=== PATIENT | male | born 1940 | race Caucasian/White ===

== ENCOUNTER 2017-08-15 08:42 | Day surgery (SDC) | payer MEDICARE, BC ==
--- NOTE | 2017-08-15 08:03 | HP ---
DATE OF SURGERY: 08/15/2017 HISTORY OF PRESENT ILLNESS: The patient is a 77 year-old last colonoscopy four years ago and three polyps. No bloody stools. Family history mother with colon cancer. She is in need of follow up colonoscopy. PAST MEDICAL HISTORY: Diabetes. PAST SURGICAL HISTORY: Colonoscopy three years or so ago. Inguinal hernia in the past. Upper endoscopy in the past. MEDICATIONS: Metformin, aspirin. ALLERGIES: NKDA. FAMILY HISTORY: Noncontributory. SOCIAL HISTORY: No alcohol abuse. REVIEW OF SYSTEMS: Twelve systems reviewed. He has got some degenerative disc disease. He denies any chronic problems. No chest pain or palpitations other systems negative or noncontributory as above and per preadmission questionnaire. PHYSICAL EXAMINATION: GENERAL: No acute distress. HEENT: Sclerae nonicteric. NECK: No JVD. CHEST: Equal excursion, nonlabored breathing. CVS: Regular rate and rhythm. ABDOMEN: Soft. No peritoneal signs. EXTREMITIES: No significant edema. NEURO: Alert, oriented, moving extremities symmetrically. No gross motor deficits noted. IMPRESSION: History of polyps in need of follow up endoscopy. He was shown the risk sheet and explained the procedure in detail but not limited to bleeding or infection, small risk of bowel injury or perforation possibly requiring open procedure, small risk of missed or nondiagnosis or incomplete exam possibly requiring barium enema, other studies or procedures, general risk of anesthesia or sedation. He understands and agrees to the planned procedure and will proceed with outpatient follow up colonoscopy.
[~2017-08-15 08:42] MED LIST: Lactated Ringers 1,000 ML IV ONE; Lactated Ringers 1,000 ML IV SCH
[2017-08-15] MEDS ORDERED: DIPRIVAN 200 MG/20 ML IV ONE (08:43)
[2017-08-15] MEDS ORDERED: Ketamine HCl 50 MG/ML IV ONE (08:43)
[2017-08-15] MEDS ORDERED: Lactated Ringers 1,000 ML IV ONE (10:51)
[2017-08-15 11:30] VITALS: O2SAT 95
[2017-08-15 12:03] VITALS: BP 152/90; PULSE 94
--- NOTE | 2017-08-15 14:39 | OP ---
SURGERY DATE/TIME: 08/15/2017 1030 PREOPERATIVE DIAGNOSES: 1) Polyps. 2) History of colon cancer status post resection. POSTOPERATIVE DIAGNOSES: 1) Somewhat poor prep limiting the exam. 2) Diverticulosis. 3) Small internal and external hemorrhoids. 4) Small raised lesion versus hyperplastic lesion versus early polyp cecum and transverse colon as well as raised area at anastomotic site versus inflammation. PROCEDURES: 1) Colonoscopy to cecum with hot biopsy of cecal small raised lesion versus early polyps or hyperplastic lesion. 2) Hot biopsy transverse colon small raised lesion versus hyperplastic lesion. 3) Hot biopsy small raised lesion anastomotic site in rectosigmoid area question of inflammation. SURGEON: Dr. Salvador Cheng. ANESTHESIA: MAC. ESTIMATED BLOOD LOSS: Minimal. INDICATIONS: As noted above. Risks and benefits explained in detail but not limited to and consent obtained. DESCRIPTION OF PROCEDURE AND FINDINGS: The patient is taken to the operating room. MAC anesthesia introduced. After official time out and no disagreement with planned procedure, digital rectal exam did not reveal any rectal masses. He had some small internal and external hemorrhoids. Video colonoscope inserted and passed up through the anastomotic area through the somewhat poorly prepped colon with liquidy semisolid stool limiting the exam for small lesions. The scope was able to be passed down transverse colon to cecum. Appendiceal orifice and valve well visualized. There were very small very vague raised lesion versus hyperplastic lesion in the cecum removed with hot biopsy forceps with good hemostasis noted. The scope was then passed back. In the transverse colon he had small raised lesion versus hyperplastic lesion removed with hot biopsy forceps. He had some diverticulosis in the left colon. There were no signs of any large polyps, masses or obstructing lesions at the anastomotic site over on the left side of the colon. A small raised area was biopsied from anastomotic site. It seemed to be must inflammation but for completeness as he did have prior colon cancer this was biopsied. He had some brief ooze here. After watching it for a few minutes did have good hemostasis. Otherwise he had some internal and external hemorrhoids. He had some diverticulosis. There were no signs of any large polyps, masses or obstructing lesions. The patient tolerated the procedure well. Findings discussed with the family out in the waiting area.
== END 2017-08-15 12:20 | disposition home or self-care (01) ==
LOC: SDC 08:42
PROVIDERS: ATTEND Surgery
PROC: 0DBH8ZX Excision of Cecum, Via Natural or Artificial Opening Endoscopic, Diagnostic (ICD-10-PCS; principal; 2017-08-15)
PROC: 0DBL8ZX Excision of Transverse Colon, Via Natural or Artificial Opening Endoscopic, Diagnostic (ICD-10-PCS; 2017-08-15)
PROC: 0DBN8ZX Excision of Sigmoid Colon, Via Natural or Artificial Opening Endoscopic, Diagnostic (ICD-10-PCS; 2017-08-15)
DX: K57.90 Diverticulosis of intestine, part unspecified, without perforation or abscess without bleeding (principal); K64.4 Residual hemorrhoidal skin tags; K64.8 Other hemorrhoids; K63.9 Disease of intestine, unspecified; Z85.038 Personal history of other malignant neoplasm of large intestine; Z90.49 Acquired absence of other specified parts of digestive tract; E11.9 Type 2 diabetes mellitus without complications; Z80.0 Family history of malignant neoplasm of digestive organs
CPT/HCPCS: 00810; 99100; J2704

== ENCOUNTER 2019-10-13 19:19 | Emergency (ER) | payer MEDICARE, BC ==
[2019-10-13] MEDS ORDERED: Sodium Chloride 0.9% 1000 ML 1,000 ML IV STA (19:26)
[2019-10-13 19:41] VITALS: O2SAT 97
[2019-10-13] MEDS ORDERED: Sodium Chloride 0.9% 1000 ML 1,000 ML ONE (19:42)
[2019-10-13 19:48] LABS: BASOPHIL % 0.3 % (0.0-0.4); Basophil (Absolute #) 0.03 (0-0.4); Eosinophil % 4.6 % (0.00-5.0); Eosinophil (Absolute #) 0.49 (0-0.5); Hematocrit 43.2 % (42-50); Hemoglobin 14.2 gm/dl (12.5-18.0); Lymphocyte (Absolute #) 2.61 (1.0-4.6); Lymphocytes % 24.6 % (24.0-44.0); Mean Cell Volume 96.4 fl (78-100); Mean Corpuscular Hemoglobin 31.7 pg (26-32); Mean Corpuscular Hgb Concent. 32.9 g/dl (32-36); Mean Platelet Volume 10.5 fl (7.5-11.0); Monocyte (Absolute #) 0.77 (0.0-1.3); Monocytes % 7.3 % (0.0-12.0); Neutrophil % 63.2 % (36.0-66.0); Platelet Count 222 K/mm3 (150-450); Red Blood Count 4.48 M/mm3 (4.1-5.6); Red Cell Distribution Width 12.8 % (11.5-14.0); White Blood Count 10.6 K/mm3 (4.0-10.5)
--- NOTE | 2019-10-13 19:51 | ERPHSYRPT ---
- History of Present Illness Time Seen by Provider: 10/13/19 19:48 Source: patient, family Exam Limitations: no limitations Patient Subjective Stated Complaint: pt states he thinks he may be having a stroke. states when he woke up this morning he bent over to pick something up and fell. deenies loc, deneis hitting his head. states since then he has had a headache that has been getting worse and dizziness. states pain is in the back and top of his head. Triage Nursing Assessment: pt alert and oriented, answers questions approp with normal speech. pt ambulatory with steady gait noted. respirations nonlabored with lungs cta. bilat upper and lower ext strength wnl. no drift noted. no facila droop noted. pupils equal and reactive. Physician History: pt states he thinks he may be having a stroke. states when he woke up this morning he bent over to pick something up and fell. deenies loc, deneis hitting his head. states since then he has had a headache that has been getting worse and dizziness. states pain is in the back and top of his head. Time of Onset/Last Time Seen Normal: this morning, no more deficit, only c/o headache Timing/Duration: today Severity: mild Character of Deficits: none Deficits: no difficulties Baseline/Normal Cognition: alert oriented x 3 Associated Symptoms: headache, No confusion, No loss of consciousness Allergies/Adverse Reactions: No Known Drug Allergies Allergy (Verified 08/10/17 12:18) Home Medications: Metformin HCl 500 mg [Glucophage 500 MG] 1,000 mg PO BID 04/09/13 [History ] Finasteride 5 mg [Proscar 5 MG] 5 mg PO DAILY 08/15/17 [History] Tamsulosin HCl 0.4 mg [Flomax 0.4 MG] 0.4 mg PO DAILY 08/15/17 [History] Hx Tetanus, Diphtheria Vaccination/Date Given: Yes (unknown) Hx Influenza Vaccination/Date Given: Yes Hx Pneumococcal Vaccination/Date Given: Yes Immunizations Up to Date: Yes - Review of Systems Constitutional: No Fever, No Chills Eyes: No Symptoms Ears, Nose, & Throat: No Symptoms Respiratory: No Cough, No Dyspnea Cardiac: No Chest Pain, No Edema, No Syncope Abdominal/Gastrointestinal: No Abdominal Pain, No Nausea, No Vomiting, No Diarrhea Genitourinary Symptoms: No Dysuria Musculoskeletal: Fall, No Back Pain, No Neck Pain Skin: No Rash Neurological: Headache, No Dizziness, No Focal Weakness, No Sensory Changes Psychological: No Symptoms Endocrine: No Symptoms All Other Systems: Reviewed and Negative - Past Medical History Pertinent Past Medical History: Yes Neurological History: No Pertinent History ENT History: Cataracts Cardiac History: No Pertinent History Respiratory History: Bronchitis, COPD Endocrine Medical History: Diabetes Type II Musculoskeletal History: No Pertinent History GI Medical History: Colorectal Cancer History: No Pertinent History Psycho-Social History: No Pertinent History Male Reproductive Disorders: No Pertinent History Other Medical History: chemo from colorectal cancer-20 yrs ago - Past Surgical History Past Surgical History: Yes Neuro Surgical History: No Pertinent History Cardiac: No Pertinent History Respiratory: No Pertinent History Gastrointestinal: Colon Resection, Hernia Repair Genitourinary: No Pertinent History Musculoskeletal: No Pertinent History Male Surgical History: No Pertinent History Other Surgical History: TONSILLECTOMY - Social History Smoking Status: Never smoker Exposure to second hand smoke: No Drug Use: none Patient Lives Alone: No - Nursing Vital Signs Nursing Vital Signs: Initial Vital Signs Temperature 98.5 F 10/13/19 19:20 Pulse Rate 97 H 10/13/19 19:20 Respiratory Rate 18 10/13/19 19:20 Blood Pressure 154/82 10/13/19 19:20 O2 Sat by Pulse Oximetry 97 10/13/19 19:20 Pain Scale Pain Intensity 4 - Tommie Coma Scale Best Eye Response ([place]): (4) open spontaneously Best Verbal Response (Tommie): (5) oriented Best Motor Response (Tommie): (6) obeys commands Tommie Total: 15 - Physical Exam General Appearance: no apparent distress, alert Eye Exam: bilateral eye: PERRL, EOMI Ears, Nose, Throat Exam: normal ENT inspection, moist mucous membranes Neck Exam: normal inspection, non-tender, supple Respiratory: normal breath sounds, lungs clear, airway intact, No respiratory distress Cardiovascular: regular rate/rhythm, No edema Gastrointestinal: soft, No tenderness, No distention Back Exam: normal inspection Extremity Exam: normal inspection, No pedal edema Mental Status: alert, 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: tongue midline Coordination/Gait: normal finger to nose, normal gait Skin Exam: normal color, warm, dry, No rash SpO2: 97 - Course Nursing assessment & vital signs reviewed: Yes EKG Interpreted by Me: Sinus Rhythm, Non-specific ST Changes - CT Exams Head CT Interpretation: Tele-radiologist Report (negative for stroke) Ordered Tests: Active Orders 24 hr Category Date Time Status Tobacco Dipper STAT Care 10/13/19 19:27 Active EKG-ER Only STAT Care 10/13/19 19:26 Active NPO (ED) STAT Care 10/13/19 19:26 Active HEAD WITHOUT CONTRAST [CT] Stat Exams 10/13/19 19:27 Ordered CBC W DIFF Stat Lab 10/13/19 19:44 Completed CMP Stat Lab 10/13/19 19:44 Completed PROTIME WITH INR Stat Lab 10/13/19 19:44 Completed TROPONIN Stat Lab 10/13/19 19:44 Received Medication Summary Generic Name Dose Route Start Last Admin Trade Name Freq PRN Reason Stop Dose Admin Sodium Chloride 1,000 mls @ 999 mls/hr 10/13/19 19:26 10/13/19 19:55 Sodium Chloride 0.9% 1000 Ml IV 10/13/19 20:26 999 mls/hr .Q1H1M STA Administration Discontinued Medications Generic Name Dose Route Start Last Admin Trade Name Freq PRN Reason Stop Dose Admin Sodium Chloride Confirm 10/13/19 19:42 Sodium Chloride 0.9% 1000 Ml Administered 10/13/19 19:43 Dose 1,000 mls @ ud .ROUTE .STK-MED ONE Lab/Rad Data: Laboratory Result Diagrams 10/13/19 19:44 10/13/19 19:44 Laboratory Results 10/13/19 10/13/19 10/13/19 Range/Units 19:44 19:44 19:44 WBC 10.6 H (4.0-10.5) K/mm3 RBC 4.48 (4.1-5.6) M/mm3 Hgb 14.2 (12.5-18.0) gm/dl Hct 43.2 (42-50) % MCV 96.4 (78-100) fl MCH 31.7 (26-32) pg MCHC 32.9 (32-36) g/dl RDW 12.8 (11.5-14.0) % Plt Count 222 (150-450) K/mm3 MPV 10.5 (7.5-11.0) fl Gran % 63.2 (36.0-66.0) % Eos # (Auto) 0.49 (0-0.5) Absolute Lymphs (auto) 2.61 (1.0-4.6) Absolute Monos (auto) 0.77 (0.0-1.3) Lymphocytes % 24.6 (24.0-44.0) % Monocytes % 7.3 (0.0-12.0) % Eosinophils % 4.6 (0.00-5.0) % Basophils % 0.3 (0.0-0.4) % Absolute Granulocytes 6.70 (1.4-6.9) Basophils # 0.03 (0-0.4) PT 14.3 H (8.83-12.87) SECONDS INR 1.26 (0.8-3.0) Sodium 138 (137-145) mmol/L Potassium 4.2 (3.5-5.1) mmol/L Chloride 104 (98-107) mmol/L Carbon Dioxide 27 (22-30) mmol/L Anion Gap 12.3 (5-15) MEQ/L BUN 12 (9-20) mg/dL Creatinine 0.95 (0.66-1.25) mg/dL Estimated GFR > 60.0 ML/MIN Glucose 257 H (74-106) mg/dL Calcium 8.9 (8.4-10.2) mg/dL Total Bilirubin 0.90 (0.2-1.3) mg/dL AST 28 (17-59) U/L ALT 26 (0-50) U/L Alkaline Phosphatase 64 (38-126) U/L Serum Total Protein 7.0 (6.3-8.2) g/dL Albumin 4.0 (3.5-5.0) g/dL - Progress Progress: improved, re-examined (no Neurological abnormality on physical exam) Counseled pt/family regarding: lab results, diagnosis, need for follow-up, rad results - Departure Departure Disposition: Home Clinical Impression: TIA (transient ischemic attack) Condition: Stable Critical Care Time: Yes Critical Care Time(excluding separately billable procedures): Critical 30-74 mins Referrals: AIDE GILBERT MD [Primary Care Provider] - Follow Up with PCP/3 days Instructions: Transient Ischemic Attack (DC) Additional Instructions: Start Aspirin 81 mg PO daily after your colonoscopy procedure. Discharge/Care Plan KASSY PANTOJA was seen on 10/13/19 in the Emergency Room. The patient was counseled regarding Diagnosis,Lab results, Imaging studies, need for follow up and when to return to the Emergency Room. Prescriptions given: Discharge Note I have spoken with the patient and/or caregivers. I have explained the patient' s condition, diagnosis and treatment plan based on the information available to me at this time. I have answered the patient's and/or caregiver's questions and addressed any concerns. The patient and/or caregivers have as good understanding of the patient's diagnosis, condition and treatment plan as can be expected at this point. The vital signs have been stable. The patient's condition is stable and appropriate for discharge from the emergency department. The patient will pursue further outpatient evaluation with the primary care physician or other designated or consulting physician as outlined in the discharge instructions. The patient and/or caregivers are agreeable to this plan of care and follow-up instructions have been explained in detail. The patient and/or caregivers have received these instruction. The patient/and or caregivers are aware that any significant change in condition or worsening of symptoms should prompt an immediate return to this or the closest emergency department or call 911. KASSY PANTOJA was seen on 10/13/19 n the Emergency Room. At that time you were treated for an emergent condition, during your visit Laboratory, Radiology and/or other procedures may have been ordered. It is very important that you follow-up with your Primary Care Physician AIDE GILBERT within the next 24- 48 hours to review your Emergency Room visit and the final results of testing that was ordered. Some test results such as Urine Cultures, Blood Cultures, and other cultures if ordered will not be finalized for 24-48 hours. If you do not have a Primary Care Provider please call the medical records department at [phone] ext [phone] to obtain a copy of your results or you may sign into our patient portal to obtain these results by visiting us @ [email or web address] and completing the following steps: 1. Click on the Patient Portal link 2. Click the Patient Self Enrollment Link to complete the enrollment form and entering your 3. Once the enrollment form is completed you will receive an email with a temporary ID and password at the email address you provided. 4. Next choose a user name and password. Your user name must be at least 4 characters long and your password must be at least 4 characters long. 5. Choose a security question from the list and provide your answer to the question. If you already have signed into the Health Portal you may access your Health Care Information 28/03 by the following steps: 1. Login to our website @ [email or web address] 2. Enter your original user name and password. FAQS The [facility] Health Portal is an online tool that contains your Lab Results, Radiology Reports, Visit History, Discharge Instructions and Health Summary Lab and Radiology Results will not be available for 72 hours on the portal. The Portal is a secure site, passwords are encryted and URLs are re-written so they cannot be copied and pasted. You and authorized family members are the only ones who can access your Portal. Also there is a timeout feature that protects your information if you leave the Portal page open. If you have technical difficulty please use the Contact Us link on the page this will allow you to submit any questions you have regarding the Portal or you may contact the Medical Record Department at [phone] ext [phone].
[2019-10-13 19:55] LABS: INR 1.26 (0.8-3.0); PROTIME 14.3 SECONDS (8.83-12.87)
[2019-10-13 20:00] LABS: ALKALINE PHOSPHATASE 64 U/L (38-126); ANION GAP 12.3 MEQ/L (5-15); BLOOD UREA NITROGEN 12 mg/dL (9-20); CHLORIDE 104 mmol/L (98-107); Calcium 8.9 mg/dL (8.4-10.2); Carbon Dioxide 27 mmol/L (22-30); Creatinine 1 0.95 mg/dL (0.66-1.25); Glucose 257 mg/dL (74-106); Potassium 4.2 mmol/L (3.5-5.1); SGOT/AST 28 U/L (17-59); SGPT/ALT 26 U/L (0-50); SODIUM 138 mmol/L (137-145)
[2019-10-13 20:20] VITALS: BP 125/79; PULSE 75
[2019-10-13] MEDS ORDERED: TYLENOL EXTRA STRENGTH 500 MG PO STA (20:43)
[2019-10-13] MEDS ORDERED: TYLENOL EXTRA STRENGTH 500 MG ONE (20:43)
--- NOTE | 2019-10-13 21:46 | XRAY ---
Indication: Headache, dizziness, and weakness. Status post fall. Multiple contiguous axial images obtained through the head without contrast. Comparison: January 01, 2006. Progressive worsening age-related global atrophy and mild periventricular degenerative micro-ischemia bilaterally. No acute intracranial hemorrhage, abnormal extra-axial fluid collection, or mass effect. Fourth ventricle is midline without hydrocephalus. Bony calvarium intact. Left maxillary sinus demonstrates minimal mucosal thickening. Remaining visualized paranasal sinuses and mastoid air cells are clear. Impression: Nonacute senile brain. Comment: Preliminary interpretation was made by [facility]. No discrepancy.
== END 2019-10-13 20:53 | disposition home or self-care (01) ==
LOC: ED 19:19
DX: G45.9 Transient cerebral ischemic attack, unspecified (principal); J44.9 Chronic obstructive pulmonary disease, unspecified; E11.9 Type 2 diabetes mellitus without complications; Z79.4 Long term (current) use of insulin; R51 Headache; W01.0XXA Fall on same level from slipping, tripping and stumbling without subsequent striking against object, initial encounter; Y93.9 Activity, unspecified; Y92.9 Unspecified place or not applicable; Z79.899 Other long term (current) drug therapy; Z85.038 Personal history of other malignant neoplasm of large intestine
CPT/HCPCS: 36415; 70450; 80053; 84484; 85025; 85610; 93005; 93041; 96360; 96365; 99284; 99291; A9270-GY

== ENCOUNTER 2022-03-17 09:16 | Day surgery (SDC) | payer MEDICARE, BC ==
[2013-06-07 22:17] VITALS: BP 128/102
[2022-03-17] MEDS ORDERED: XYLOCAINE-MPF 1% 5ML SDV IJ ONE (09:17)
[2022-03-17] MEDS ORDERED: Marcaine Mpf 0.5% Vial 30 Ml IJ ONE (09:17)
[2022-03-17] MEDS ORDERED: Depo-Medrol 40 MG/ML IM ONE (09:17)
--- NOTE | 2022-03-17 12:25 | XRAY ---
Indication: Bilateral SI joint injection. Intraoperative fluoroscopy provided for 16 seconds. 4 digital spot images submitted for interpretation demonstrate posterior needle tip projecting over the inferior left and right SI joint. Correlate with intraoperative findings/report. Incidental multiple pelvic surgical clips.
--- NOTE | 2022-03-17 15:25 | XRAY ---
16 seconds fluoroscopy time in surgery for bilateral SI joint injections.
== END 2022-03-17 11:43 | disposition home or self-care (01) ==
LOC: SDC-PAIN 09:16
PROVIDERS: ATTEND Psychiatry & Neurology Pain Medicine
DX: M46.1 Sacroiliitis, not elsewhere classified (principal); E11.9 Type 2 diabetes mellitus without complications; Z79.899 Other long term (current) drug therapy
CPT/HCPCS: 27096; 72202; 77002; 82947; G0260; J1030

== ENCOUNTER 2022-04-14 08:18 | Day surgery (SDC) | payer MEDICARE, BC ==
[2013-06-07 22:17] VITALS: BP 128/102
[2022-04-14] MEDS ORDERED: LIDOCAINE HCL 2% 100 MG/5 ML IJ ONE (08:19)
[2022-04-14] MEDS ORDERED: DIPRIVAN 200 MG/20 ML IV ONE (09:50)
--- NOTE | 2022-04-14 11:27 | XRAY ---
Indication: Bilateral L4-S1 MBB. Intraoperative fluoroscopy provided for 7 seconds. Single digital spot image submitted for interpretation demonstrates posterior needle tips projecting over the expected left and right L4-S1 nerve roots. Correlate with intraoperative findings/report.
[2022-04-14] MEDS ORDERED: Lactated Ringers 1,000 ML IV ONE (12:13)
--- NOTE | 2022-04-14 14:09 | XRAY ---
7 seconds of fluoroscopy was used in surgery for a bilateral L4-S1 MBB.
== END 2022-04-14 10:10 | disposition home or self-care (01) ==
LOC: SDC-PAIN 08:18
PROVIDERS: ATTEND Psychiatry & Neurology Pain Medicine
DX: M47.816 Spondylosis without myelopathy or radiculopathy, lumbar region (principal); E11.9 Type 2 diabetes mellitus without complications; Z79.899 Other long term (current) drug therapy
CPT/HCPCS: 64493; 64494; 72020; 77002; 82947; J2704

== ENCOUNTER 2022-09-06 09:38 | Day surgery (SDC) | payer MEDICARE, BC ==
--- NOTE | 2022-08-30 08:50 | HP ---
DATE OF SURGERY: 09/06/2022 HISTORY OF PRESENT ILLNESS: The patient is an 82-year-old had some back pain. He has history of colon cancer resection in the past. He is in need of follow up screening colonoscopy. PAST MEDICAL HISTORY: Colon cancer. Hyperlipidemia. Benign prostatic hypertrophy. Diabetes mellitus type II. Anxiety. PAST SURGICAL HISTORY: Colon resection. He had colonoscopy in the past. MEDICATIONS: Escitalopram, Metformin, buspirone for anxiety, clopidogrel, tamsulosin, atorvastatin for hyperlipidemia, pioglitazone, fluconazole spray, nasal Azelastine spray, glimepiride, prednisone, meclizine, potassium chloride, furosemide, Klor-Con. ALLERGIES: NKDA. FAMILY HISTORY: Colon cancer. Diabetes. Myocardial infarction. SOCIAL HISTORY: No smoking. REVIEW OF SYSTEMS: Fourteen systems reviewed pertinent for as noted above with chronic illnesses. No chest pain or palpitations. PHYSICAL EXAMINATION: GENERAL: No acute distress. HEENT: Sclerae nonicteric. NECK: No JVD. CHEST: Equal excursion, nonlabored breathing. CVS: Regular rate and rhythm. ABDOMEN: Soft. No peritoneal signs. EXTREMITIES: No significant edema. NEURO: Alert, oriented, moving extremities symmetrically. RECTAL: Deferred timed to endoscopy exam. PSYCH: Appropriate mood and affect. SKIN: Dry. IMPRESSION: History of colon cancer. He is in need of follow up screening colonoscopy. I feel he is a candidate. Risks and benefits explained in detail including but not limited to bleeding or infection, risk of bowel injury or perforation, risk of missed or nondiagnosis or incomplete exam possibly requiring barium enema, other studies or procedures, general risk of anesthesia or sedation, risk of bowel prep but not limited to, consent obtained. Will proceed with follow up colonoscopy under MAC anesthesia as an outpatient.
[2022-09-06] MEDS ORDERED: Lactated Ringers 1,000 ML IV ONE (09:56)
[2022-09-06] MEDS ORDERED: Lactated Ringers 1,000 ML IV SCH (10:00)
[2022-09-06] MEDS ORDERED: DIPRIVAN 200 MG/20 ML IV ONE (12:51)
[2022-09-06 13:44] VITALS: BP 110/76; PULSE 78; O2SAT 93
--- NOTE | 2022-09-07 09:56 | OP ---
SURGERY DATE/TIME: 09/06/2022 1243 PREOPERATIVE DIAGNOSIS: History of prior colon resection, need for follow up screening colonoscopy. POSTOPERATIVE DIAGNOSES: 1) Small polyps. 2) Fair bowel prep. 3) Withdrawal time approximately nine minutes. 4) ASA Class III. PROCEDURES: 1) Colonoscopy to terminal ileum. 2) Retrograde ileoscopy. 3) Hot biopsy polypectomy small cecal polyp. 4) Hot biopsy polypectomy transverse colon polyp. 5) Hot biopsy small raised lesion versus early polyp transverse colon. SURGEON: Dr. Salvador Cheng. ANESTHESIA: MAC. ESTIMATED BLOOD LOSS: Minimal. INDICATIONS: As noted above. Risks and benefits explained in detail but not limited to and consent obtained. DESCRIPTION OF PROCEDURE AND FINDINGS: The patient is taken to the endoscopy room. MAC anesthesia introduced. After official time out and no disagreement with planned procedure, digital rectal exam did not reveal any rectal masses. He had some minimal internal hemorrhoids. Video colonoscope inserted and passed up through the slightly tortuous sigmoid, descending, transverse and ascending colon around to the cecum, up in the terminal ileum. Retrograde ileoscopy grossly unremarkable. The scope is then carefully withdrawn. There was a small polyp in the cecum that was removed with hot biopsy polypectomy base appendiceal orifice. Good hemostasis noted. It was removed with hot biopsy polypectomy. The scope is carefully withdrawn some other small polyps in the transverse colon removed with hot biopsy polypectomy. Good hemostasis noted. Small, vague raised lesion versus hyperplasia mucosa was removed with hot biopsy forceps with brief bursts of cautery. Good hemostasis is noted. Otherwise prep overall is fair. A little bit of liquidy semisolid stool. The scope withdrawn over nine minutes. The prior anastomotic site appeared to be widely patent. No evidence of any recurrent issues. The patient had minimal internal hemorrhoids but overall no signs of any large polyps, masses or any other obstructing lesion. The scope is withdrawn. There were no immediate complications. Findings discussed with the family out in the waiting area.
== END 2022-09-06 13:54 | disposition home or self-care (01) ==
LOC: SDC 09:38
PROVIDERS: ATTEND Surgery
DX: Z08 Encounter for follow-up examination after completed treatment for malignant neoplasm (principal); Z85.038 Personal history of other malignant neoplasm of large intestine; D12.0 Benign neoplasm of cecum; D12.3 Benign neoplasm of transverse colon; E11.9 Type 2 diabetes mellitus without complications; K64.8 Other hemorrhoids
CPT/HCPCS: 82947; 88305; 99100; J2704